=== PATIENT | male | born 1955 | race Caucasian/White ===

== ENCOUNTER 2018-12-23 09:53 | Inpatient (IN) ==
[2018-12-23] MEDS ORDERED: DUONEB (A & A) INH ONE (10:18)
[2018-12-23] MEDS ORDERED: ZOFRAN IV ONE (10:18)
[2018-12-23] MEDS ORDERED: NS 1,000 ML IV ONE ×4 (10:18→14:38)
[2018-12-23] MEDS ORDERED: MORPHINE IV ONE (10:18)
[2018-12-23] MEDS ORDERED: ZOSYN 4.5 GM in NS 100 ML IV ONE (10:18)
--- NOTE | 2018-12-23 11:05 | EKG Report ---
Test Performed on : 12/23/2018 10:10:47 AM Test Reason : tachycardia Blood Pressure : / mmHG Vent. Rate : 117 BPM Atrial Rate : 117 BPM P-R Int : 128 ms QRS Dur : 074 ms QT Int : 310 ms P-R-T Axes : 056 -18 026 degrees QTc Int : 432 ms Sinus tachycardia. Otherwise normal ECG No previous ECGs available Unconfirmed Result
[2018-12-23 11:09] LABS: BASO# 0.02 X1000 (0.0-0.2); BASO% 0.1 % (0.0-0.8); HEMATOCRIT 46.9 % (42.0-52.0); HEMOGLOBIN 15.6 g/dL (14.0-18.0); IMM GRAN# 0.09 X1000 (0.0-0.04); IMM GRAN% 0.6 % (0.0-0.5); LYMPH# 1.22 X1000 (1.2-3.4); LYMPH% 8.4 % (20.5-51.1); MCHC 33.3 g/dL (33-37); MCV 84.1 FL (81-99); MONO# 0.86 X1000 (0.11-0.59); MONO% 5.9 % (1.7-9.3); MPV 10.4 FL (7.4-10.4); NEUT# 12.42 X1000 (1.4-6.5); PLT 351 X1000 (130-400); RBC 5.58 XMIL (4.7-6.1); RDW 13.6 % (11.5-14.5); WBC 14.61 X1000 (4.8-10.8)
[2018-12-23 11:15] LABS: INR 1.04; PROTIME 13.8 Seconds (11.0-16.0)
[2018-12-23 11:16] LABS: PTT 26.2 Seconds (22.3-41.8)
[2018-12-23 11:31] LABS: AGAP 26; ALB/GLOB RATIO 1.7; ALBUMIN 4.5 g/dL (3.5-5.0); ALKALINE PHOSPHATASE 96 U/L (32-122); BUN 24 mg/dL (8-22); CALCIUM 9.6 mg/dL (8.8-10.2); CHLORIDE 95 mmol/L (98-107); CK PROFILE 127 U/L (24-204); COSMO 289; CREATININE 1.1 mg/dL (0.7-1.2); ESTIMATED GFR > 60; GLUCOSE 135 mg/dL (70-104); GOT 20 U/L (10-34); GPT 13 U/L (10-44); POTASSIUM 3.7 mmol/L (3.5-5.1); SODIUM 142 mmol/L (136-145); TCO2 21 mmol/L (25-35); TOTAL BILIRUBIN 1.19 mg/dL (0.20-1.00); TOTAL PROTEIN 7.2 g/dL (6.3-8.3)
--- NOTE | 2018-12-23 11:32 | Diag Imaging Result Doc PS360 ---
CHEST-1 VIEW - 12/23/2018 INDICATION: sob COMPARISON: None FINDINGS: The lungs are normally expanded and clear. Heart size and mediastinal contours are normal. No pneumothorax or pleural effusion. IMPRESSION: Negative exam. Electronically signed by Ottoniel Robledo 12/23/2018 11:30 AM
[2018-12-23 13:13] LABS: URINE SOURCE CLEAN CATCH
--- NOTE | 2018-12-23 13:14 | Diag Imaging Result Doc PS360 ---
CT ABD/PELVIS/PULM ARTERIES - 12/23/2018 INDICATION: post-colonoscopy vomiting/sepsis,dyspnea TECHNIQUE: Axial CT images were obtained after administering intravenous contrast. Coronal MIP images were generated. COMPARISON: 10/24/2014 FINDINGS: CHEST: There is no pulmonary embolism. Heart and great vessels are normal. There is severe diffuse wall thickening of the esophagus. There is a stable hiatal hernia. No adenopathy. There is severe infiltrate in the left lower lobe indicating pneumonia. Airways are clear. Bones are intact. Abdomen pelvis: The liver, gallbladder, spleen, pancreas, adrenals, and kidneys are normal. No bowel obstruction or inflammation. There is hernia repair mesh at the left inguinal canal and at the diaphragmatic hiatus. Urinary bladder, prostate, and rectum are normal. Bones are intact. IMPRESSION: 1. Dense left lower lobe pneumonia. 2. Severe wall thickening of the esophagus presumably diffuse esophagitis. Correlate clinically. This exam was performed using automated exposure control, adjustment of mA or kV according to patient size, and/or use of iterative reconstruction technique Electronically signed by Ottoniel Robledo 12/23/2018 1:12 PM
[2018-12-23 13:17] LABS: BILIRUBIN URINE NEGATIVE (NEGATIVE); BLOOD URINE NEGATIVE (NEGATIVE); COLOR YELLOW; GLUCOSE URINE NEGATIVE (NEGATIVE); KETONE URINE >150 mg/dL (NEGATIVE); LEUKOCYTES URINE NEGATIVE (NEGATIVE); NITRITE URINE NEGATIVE (NEGATIVE); PROTEIN URINE TRACE mg/dL (NEGATIVE); SP GRAVITY URINE 1.044; TURBIDITY URINE CLEAR (CLEAR); UROBILINOGEN URINE NORMAL (NORMAL)
[2018-12-23 13:18] LABS: UR EPITHELIAL CELLS <10 /HPF (<10); URINE BACTERIA NEGATIVE /HPF; URINE RBC <10 /HPF (<10); URINE WBC <10 /HPF (<10)
[2018-12-23] MEDS ORDERED: VANCOMYCIN 1 GM/NS 1 GM/250 ML IVPB IV ONE ×2 (13:24→15:00)
--- NOTE | 2018-12-23 13:31 | PROVIDER DOCUMENTATION ---
This chart was entered by Laura Ascencio Scribe, acting as scribe for Santiago Duffy MD. HPI-General Adult - General Chief Complaint: Post Op Complaint Stated Complaint: POST PROCEDURE PROBLEM Time Seen by Provider: 12/23/18 10:08 Source: patient, family (son) Allergies/Adverse Reactions: Patient Allergies Allergy/AdvReac Type Severity Reaction Status Date / Time No Known Allergies Allergy Verified 12/23/18 10:45 Home Medications: Home Medication List Medication Instructions Recorded Confirmed Last Taken Type Hydrocodone/APAP 7.5 mg/325 mg 1 each PO Q6H PRN PRN #15 tablet 11/06/14 12/23/18 Unknown Rx [[place]-7.5] - History of Present Illness -Gen Adult Nature of Presenting Problems: Patient is a 63 year old male who presents with post op complaints. Patient's son states patient had a colonoscopy done 4 days ago and during the procedure he aspirated. Son reports patient has been having shortness of breath and cough. Son states nausea, vomiting and weight loss of 10 lbs as well. Patient denies fever, diarrhea and abdominal pain. Son also states patient was in A fib with RVR after colonoscopy and received 2 doses of a medication. Location of Pain/Injury: reports: none Quality of Pain: reports: none Severity: reports: mild Onset/Duration: reports: 4 days ago Timing: reports: still present Context/Activities at Onset: reports: light activity Associated Symptoms: reports: cough, nausea, shortness of breath, vomiting, other (weight loss) Similar Symptoms Previously?: Yes Recently seen or treated by another doctor?: Yes Review of Systems - Adult - REVIEW OF SYSTEMS - ADULT ROS:: ROS per family Constitutional: reports: see HPI, weight loss. denies: chills, fever Eyes: reports: no symptoms reported Ears, Nose, Mouth & Throat: reports: no symptoms reported Cardiovascular: reports: no symptoms reported Respiratory: reports: see HPI, cough, shortness of breath. denies: wheezing Gastrointestinal: reports: nausea, vomiting. denies: abdominal pain Genitourinary: reports: no symptoms reported Musculoskeletal: reports: no symptoms reported Integumentary: reports: no symptoms reported Neurological: reports: no symptoms reported Psychiatric: reports: no symptoms reported Endocrine: reports: no symptoms reported Hematologic/Lymphatic: reports: no symptoms reported Allergic/Immunologic: reports: no symptoms reported All Other Systems: Reviewed and Negative Past History - Adult - PAST MEDICAL HISTORY-ADULT Review of Records: reports: Old Records Reviewed, Nursing Assessment Review, Medications Reviewed, Social history reviewed & non-contributory. Major Childhood Illnesses: reports: denies history Cardiovascular: reports: A-Fib Respiratory: reports: denies history Gastrointestinal: reports: denies history Obstetrical/Gynecological: reports: denies history Genitourinary: reports: denies history. denies: kidney stones, prostatitis Musculoskeletal: reports: denies history Neurological: reports: denies history Psychiatric: reports: denies history Endocrine/Immune: reports: denies history Other Conditions: reports: denies history - PRIOR SURGERIES/PROCEDURES Surgical/Procedure History: reports: hernia repair - PRIOR HOSPITALIZATIONS Prior Hospitalizations: reports: none - IMMUNIZATION STATUS Childhood Immunizations: See Nurse Assessment Flu Vaccine: See Nurse Assessment - FAMILY HISTORY Family History: reviewed, not pertinent - SOCIAL HISTORY Smoking: denies Substance Use: denies Physical Exam-General - PHYSICAL EXAM-ADULT Initial Vital Signs Reviewed: Yes - CONSTITUTIONAL General Appearance: alert, no apparent distress, other (generally ill appearing) . negative: lethargic - RESPIRATORY Respiratory: chest non-tender, lungs clear, increased rate. negative: respiratory distress, crackles, rhonchi - CARDIOVASCULAR Cardiovascular: normal peripheral pulses, tachycardia. negative: systolic murmur - GASTROINTESTINAL (ABDOMEN) Abdominal Exam: normal bowel sounds, non tender, soft, other (well healed mid line scar.). negative: guarding, rebound - SKIN Integumentary: normal color, normal turgor, warm/dry. negative: diaphoresis, erythema - NEUROLOGIC Neurologic: grossly normal. negative: aphasia, facial droop - PSYCHIATRIC Psych/Mental Status: normal mood/affect. negative: paranoid, tearful Progress - PLAN OF CARE/RESULTS Progress/Plan/Lab Results: Vital Signs - 8 hr 12/23/18 09:59 Temperature 97.5 F L Pulse Rate 121 H Respiratory Rate 25 H Blood Pressure 132/93 O2 Sat by Pulse Oximetry 96 Orders Category Date Time Status Cardiac Monitoring DIRECTED Care 12/23/18 10:04 Active IV Insertion ORDERED Care 12/23/18 10:04 Active Notify MD of + Sepsis Screen NOW Care 12/23/18 10:04 Active Notify Physician As Ordered Care 12/23/18 10:04 Active CHEST-1 VIEW [RAD] Stat Exams 12/23/18 10:04 Ordered BLOOD CULTURE [BLDCUL] Stat Lab 12/23/18 10:04 Uncollected CBC WITH DIFF [HEME] Stat Lab 12/23/18 10:04 Uncollected CK PROFILE [SP CHEM] Stat Lab 12/23/18 10:04 Uncollected COMPREHENSIVE METABOLIC PANEL [CHEM] Stat Lab 12/23/18 10:04 Uncollected LACTATE, PLASMA [CHEM] Q3H Lab 12/23/18 10:15 Uncollected LACTATE, PLASMA [CHEM] Q3H Lab 12/23/18 13:15 Uncollected LACTATE, PLASMA [CHEM] Q3H Lab 12/23/18 16:15 Uncollected PROTIME WITH INR [COAG] Stat Lab 12/23/18 10:04 Uncollected PTT [COAG] Stat Lab 12/23/18 10:04 Uncollected TROPONIN T Stat Lab 12/23/18 10:04 Uncollected URINALYSIS W/POSS RFLX CULT [URINALYSIS] Stat Lab 12/23/18 10:04 Uncollected Oxygen Device Stat Oth 12/23/18 10:04 Active Result Diagrams: 12/23/18 10:43 12/23/18 10:43 - REASSESSMENT Reassessment #1 Time Reassessed: 13:28 Status: improving (Given neb treatments, IV vanco/zosyn, much improved. Meets criteria for sepsis, and lactate is elevated. Not hypotensive and lactate is less than 4, so does not need the full 30ml/kg bolus) - EKG 1 Time of EKG reading by physician:: 10:10 EKG Read and Signed by:: Santiago Duffy EKG Interpretation (*Must complete 3 of following elements*): Abnormal Rate: 117 Rhythm: sinus tachycardia [place]: normal [place] Interval: normal Comments: early transition, artifact present. 2 Time of EKG reading by physician:: 11:22 EKG Read and Signed by:: Santiago Duffy EKG Interpretation (*Must complete 3 of following elements*): Abnormal Rate: 100 Rhythm: sinus tachycardia [place]: normal [place] Interval: normal Comments: early transition, artifact present, NSSTTWC - XRAY 1 XRAY Study: Chest Impression: See EMR Report ( CHEST-1 VIEW - 12/23/2018 INDICATION: sob COMPARISON: None FINDINGS: The lungs are normally expanded and clear. Heart size and mediastinal contours are normal. No pneumothorax or pleural effusion. IMPRESSION: Negative exam. Electronically signed by Ottoniel Robledo 12/23/2018 11:30 AM 12/23/18 1130 Interpreting Physician: Ottoniel Robledo MD Dictated Date/Time: 12/23/18 1130 cc: Santiago Duffy MD; Saul Castillo) - CT/MRI 1 CT Study: Abdomen, Pelvis Impression: See EMR Report ( CT ABD/PELVIS/PULM ARTERIES - 12/23/2018 INDICATION: post-colonoscopy vomiting/sepsis,dyspnea TECHNIQUE: Axial CT ashok ges were obtained after administering intravenous contrast. Coronal MIP images were generated. COMPARISON: 10/24/2014 FINDINGS: CHEST: There is no pulmonary embolism. Heart and great vessels are normal. There is severe diffuse wall thickening of the esophagus. There is a stable hiatal hernia. No adenopathy. There is severe infiltrate in the left lower lobe indicating pneumonia. Airways are clear. Bones are intact. Abdomen pelvis: The liver, gallbladder, spleen, pancreas, adrenals, and kidneys are normal. No bowel obstruction or inflammation. There is hernia repair mesh at the left inguinal canal and at the diaphragmatic hiatus. Urinary bladder, prostate, and rectum are normal. Bones are intact. IMPRESSION: 1. Dense left lower lobe pneumonia. 2. Severe wall thickening of the esophagus presumably diffuse esophagitis. Correlate clinically. This exam was performed using automated exposure control, adjustment of mA or kV according to patient size, and/or use of iterative reconstruction technique Electronically signed by Ottoniel Robledo 12/23/2018 1:12 PM 12/23/18 1312 Interpreting Physician: Ottoniel Robledo MD Dictated Date/Time: 12/23/18 1250 cc: Santiago Duffy MD; Saul Castillo) - CONSULTS/PCP/HOSPITALIST Notification #1 *Consult/PCP/Hospitalist*: GERTRUDIS Stock for Hospitalist Time Discussed: 13:26 Reason/Comments: Dr. Duffy consulted with [facility] about patient. Consult Disposition: Will see in ED, Admit Departure - Departure Date of Disposition Decision: 12/23/18 Time of Disposition Decision: 13:27 DIAGNOSIS: Aspiration pneumonia of left lower lobe due to gastric secretions, Sepsis with organ dysfunction Disposition: ADMITTED INPATIENT 09 Certified Medical Emergency: Emergent Condition: Fair Referrals and Follow-Ups: Saul Castillo [Primary Care Provider] - - Critical Care Note This patient required my direct & personal management of CC.: Yes Total Time (mins): 40 (CVS/BLOWING ENGINEER/renal systems needed interventions) Critical Care Statement: This patient required my direct personal management to treat or rule out processes, the absence of which, could potentiallly result in sudden, clinically significant life or limb threatening deterioration. Attestation - Physician/ STACIA Attestation Patient care was provided by Advanced Practice Provider:: No The physician spent face to face time with patient:: Yes Advanced Practice Provider documentation review:: Supervising physician onsite and consulted in the evaluation and care of this patient. The physician did have a face to face encounter with the patient. This chart was documented by the indicated scribe, (Laura Ascencio Scribe) and accurately reflects the services I performed and decisions made by me, Santiago Duffy MD, as attested by the provider's signature.
[2018-12-23] MEDS ORDERED: VANCOMYCIN IV PER PHARMACY MISC SCH (14:15)
[2018-12-23] MEDS ORDERED: NORCO-7.5 PO PRN (14:38)
[2018-12-23] MEDS ORDERED: TYLENOL PO PRN (14:38)
[2018-12-23] MEDS ORDERED: BLISTEX MEDICATED BERRY LIP BALM TOP PRN (16:43)
[2018-12-23] MEDS ORDERED: CHLORASEPTIC SPRAY MT PRN (16:54)
[2018-12-23] MEDS: PEPCID IV SCH (17:05)
[2018-12-23] MEDS: ZOSYN 3.375 GM in NS 50 ML IV SCH ×2 (17:05→21:49)
[2018-12-23] MEDS: MUCINEX PO SCH (21:48)
[2018-12-24] MEDS: PEPCID IV SCH ×2 (03:04→16:31)
[2018-12-24] MEDS: ZOFRAN IV PRN (03:04)
[2018-12-24] MEDS: ZOSYN 3.375 GM in NS 50 ML IV SCH ×3 (03:04→17:52)
[2018-12-24] MEDS: SODIUM CHLORIDE 0.9% INJ SCH (03:04)
--- NOTE | 2018-12-24 04:04 | HISTORY AND PHYSICAL ---
PRIMARY CARE PHYSICIAN: [place] HISTORY OF PRESENT ILLNESS: He apparently had a colonoscopy Monday (this is Monday), and he threw up a couple times, one right after the procedure, and another later on in recovery. He felt like he may have had a stomach virus that came on around Monday because he has had nausea. He has not drank or eaten much in the way of food or liquid, and he has kind of just had general malaise and felt bad. He has had a cough and bronchial irritation, and so was brought to the emergency room, where it appears he has a lobar pneumonia, I believe of his left lower lobe. He denies any squeezing or pressure chest pain. No hemoptysis. He felt well until Monday. His son is a nurse practitioner, and he helped with the history. Past medical history is pretty unremarkable. He has had what sounds like a Leigh Ann fundoplication for a hiatal hernia. Otherwise, I do not think he has had any significant medical problems. No diabetes. No heart issues. ALLERGIES: No known drug allergies. PAST MEDICAL HISTORY: 1. He has had a history of kidney stones. 2. Benign prostatic hypertrophy with obstruction. 3. Urinary retention in the past, and some microhematuria. PAST SURGICAL HISTORY: Hiatal hernia. I think he has had 3 separate surgeries for revision of the Leigh Ann fundoplication. He had a broken thumb and circumcision. SOCIAL HISTORY: He does not smoke. He smoked a pack a day for 3 years, 3-pack-year history, so he must of quit, and drinks rare alcohol, less than social is what he said. FAMILY HISTORY: Father with a history of CVA and heart disease. His father has passed. History of heart disease, and brother with history of diabetes. REVIEW OF SYSTEMS: Constitutional: He does not report any weight gain or loss. He has felt like he has had subjective fever. HEENT: No change in vision or hearing acuity. Neck: No neck pain or adenopathy. Respiratory: No increased work of breathing until after Monday. He has noticed a little increased dyspnea on exertion and a frequent cough provoked with talking and deep inspiration. Cardiovascular: No chest pain or tachy palpitation. Gastrointestinal/Genitourinary: Unremarkable. Endocrinologic/Hematologic: No significant history. Neurologic: No focal changes or complaints. PHYSICAL EXAMINATION: VITAL SIGNS: Temperature 98.5 degrees, pulse 107, respirations 24, blood pressure 162/107. Weight 170 pounds. Height 5 feet 10 inches. HEENT: His pupils are equal and round. No sign of oral or nasal mucosal lesions. Conjunctiva was pink. Sclerae was clear. NECK: CVP less than 6 cm. No distended neck veins. Supple. No adenopathy. LUNGS: Clear in anterior lung garcia. There is some rhonchi in both bases, but a little more prominent in the left lower base posterior. CARDIOVASCULAR: Regular rhythm and rate. He does have some sinus tachycardia. No ectopy appreciated on the monitor. ABDOMEN: Soft, nondistended, nontender. Positive bowel sounds in all quadrants. Carotid, radial, and femoral pulses are 2+ and symmetrical. No carotid or femoral bruits. EXTREMITIES: Without edema. He did not complain or did not see sign of rash on his skin. IMAGING AND LABORATORY DATA: White count is 14,610, hematocrit 46, platelet count 351,000. Sodium 142, potassium 3.7, chloride 95, BUN 24, creatinine 1.1. Blood sugar 135. AST 20, ALT was 13, alkaline phosphatase was 96. Troponin was less than 0.01. Albumin 4.5. ProTime is 13.8, INR was 1.04, PTT was 26. Urinalysis unremarkable. Abdominal and pelvic CT: We could appreciate a dense left lower lobe pneumonia, severe wall thickening of the esophagus, presumably diffuse esophagitis. Chest x-ray: Negative exam. Did not see infiltrates. Lungs normally expanded. Clear. There is little haziness in the left base though. ASSESSMENT AND PLAN: 1. Left lower lobe pneumonia, suspect from aspiration. We will cover for gram-negative, and will use vancomycin and Zosyn to cover for gram-positive cocci as well. We will give bronchodilators, supplementary oxygen. I think he would benefit from a steroid inhaler as well. Will put him on guaifenesin, which will be 1200 mg twice a day, incentive spirometry, and oxygen at 2 liters per nasal cannula. Will follow up with another chest x-ray in the morning, and we will check T4, TSH, B12, and folate. Will send a sputum for culture. 2. History of Leigh Ann fundoplication, hiatal hernia. He has not had any real symptoms of pain or reflux. We will keep him on a proton pump inhibitor while he is here, just oral, and we can use Nexium 40 mg once a day. cc: Douglas Burch MD
[2018-12-24 07:02] LABS: BASO# 0.01 X1000 (0.0-0.2); BASO% 0.1 % (0.0-0.8); EOS# 0.02 X1000 (0.0-0.7); EOS% 0.2 % (0.0-10.0); HEMATOCRIT 36.2 % (42.0-52.0); HEMOGLOBIN 11.9 g/dL (14.0-18.0); IMM GRAN# 0.11 X1000 (0.0-0.04); IMM GRAN% 0.9 % (0.0-0.5); LYMPH# 1.27 X1000 (1.2-3.4); LYMPH% 10.9 % (20.5-51.1); MCH 28.4 PG (27-31); MCHC 32.9 g/dL (33-37); MCV 86.4 FL (81-99); MONO# 0.75 X1000 (0.11-0.59); MONO% 6.4 % (1.7-9.3); MPV 10.1 FL (7.4-10.4); NEUT% 81.5 % (42.2-75.2); PLT 238 X1000 (130-400); RBC 4.19 XMIL (4.7-6.1); RDW 13.5 % (11.5-14.5); WBC 11.66 X1000 (4.8-10.8)
--- NOTE | 2018-12-24 07:20 | Diag Imaging Result Doc PS360 ---
EXAM: CHEST-PORTABLE 12/24/2018 HISTORY: Pneumonia TECHNIQUE: AP portable upright at 0610 COMMENT: There is ill-defined opacity in the left lower lobe. Compared to 12/23/2018 there has been no significant change in the appearance of the chest. IMPRESSION: Minimal left lower lobe bronchopneumonia. Electronically signed by Ammon Sierra 12/24/2018 7:18 AM
[2018-12-24 07:35] LABS: FREE T4 1.56 ng/dL (0.93-1.70); TSH 1.4 uIUmL (0.27-4.20)
[2018-12-24 07:37] LABS: AGAP 14; ALB/GLOB RATIO 1.3; ALBUMIN 3.2 g/dL (3.5-5.0); ALKALINE PHOSPHATASE 69 U/L (32-122); BUN 15 mg/dL (8-22); CALCIUM 7.6 mg/dL (8.8-10.2); CHLORIDE 101 mmol/L (98-107); COSMO 278; CREATININE 0.9 mg/dL (0.7-1.2); ESTIMATED GFR > 60; GLUCOSE 117 mg/dL (70-104); GOT 17 U/L (10-34); GPT 10 U/L (10-44); POTASSIUM 3.3 mmol/L (3.5-5.1); SODIUM 138 mmol/L (136-145); TCO2 23 mmol/L (25-35); TOTAL BILIRUBIN 1.11 mg/dL (0.20-1.00); TOTAL PROTEIN 5.7 g/dL (6.3-8.3)
--- NOTE | 2018-12-24 07:38 | EKG Report ---
Test Performed on : 12/24/2018 07:15:03 AM Test Reason : ST Blood Pressure : / mmHG Vent. Rate : 066 BPM Atrial Rate : 066 BPM P-R Int : 138 ms QRS Dur : 078 ms QT Int : 400 ms P-R-T Axes : 010 -08 030 degrees QTc Int : 419 ms Normal sinus rhythm. Nonspecific ST abnormality Abnormal ECG When compared with ECG of 23-DEC-2018 11:22, (Unconfirmed) Vent. rate has decreased BY [address] no longer depressed in Inferior leads Nonspecific T wave abnormality has replaced inverted T waves in Inferior leads Unconfirmed Result
--- NOTE | 2018-12-24 08:07 | EKG Report ---
Test Performed on : 12/23/2018 11:22:08 AM Test Reason : ED. NO EKG ORDER FOR MUSE Blood Pressure : / mmHG Vent. Rate : 100 BPM Atrial Rate : 100 BPM P-R Int : 116 ms QRS Dur : 080 ms QT Int : 354 ms P-R-T Axes : 070 -16 000 degrees QTc Int : 456 ms Normal sinus rhythm. Inferior infarct , age undetermined Abnormal ECG When compared with ECG of 23-DEC-2018 10:10, (Unconfirmed) ST now depressed in Inferior leads Unconfirmed Result
[2018-12-24] MEDS: VANCOMYCIN 1,500 MG in NS 250 ML IV SCH (09:43)
--- NOTE | 2018-12-24 09:49 | PROGRESS NOTE ---
DATE: 12/24/2018 SUBJECTIVE: He was up. He was ambulating. Says he feels better, a little stronger, remains afebrile. OBJECTIVE: Vital Signs: On exam, temperature 98.0 degrees, pulse 78, respirations 18, blood pressure 152/70. Eyes: Pupils are equal. Lungs: Clear in all lung garcia anterolateral. Cardiovascular exam: Regular rhythm and rate without murmur or S3. Abdomen: Soft. Skin: Skin is warm and dry. : Urine output is 1500 mL. X-RAYS: Chest x-ray: Minimal left lower lobe bronchopneumonia appreciated. ASSESSMENT AND PLAN: Bronchopneumonia. I suspect some aspiration. Had a recent colonoscopy with some vomiting. He is feeling better. He appeared a little bit volume depleted or dehydrated when he came in. That has improved as well. We will continue right now his vancomycin and Zosyn. Cultures pending. Group A strep was negative from negative antigen. Influenza screen was negative for A and B. cc: Douglas Burch MD
[2018-12-24] MEDS: MUCINEX PO SCH ×2 (10:36→22:49)
[2018-12-25] MEDS: ZOFRAN IV PRN ×2 (01:35→05:33)
[2018-12-25] MEDS: ZOSYN 3.375 GM in NS 50 ML IV SCH ×4 (01:40→20:49)
[2018-12-25] MEDS: PEPCID IV SCH ×2 (02:51→14:08)
[2018-12-25] MEDS: SODIUM CHLORIDE 0.9% INJ SCH ×2 (02:51→14:08)
[2018-12-25] MEDS: VANCOMYCIN 1,500 MG in NS 250 ML IV SCH ×2 (03:13→21:55)
[2018-12-25] MEDS: MUCINEX PO SCH ×3 (08:01→21:23)
--- NOTE | 2018-12-25 09:40 | PROGRESS NOTE ---
DATE: 12/25/2018 SUBJECTIVE: Mr. Govea feels much better. His voice is still raspy. Still coughing. OBJECTIVE: Vital Signs: Remains afebrile, temperature 98.8 degrees, pulse 70, respirations 18, blood pressure 162/60. HEENT: Pupils are equal and round. Lungs: Clear in all lung garcia. Cardiovascular: Regular rhythm and rate without murmur or S3. Abdomen: Soft. Skin: Warm and dry. Urine output 2700 mL. ASSESSMENT AND PLAN: Bronchial pneumonia. Clinically better. Hopefully can go home tomorrow. Continue present antibiotics. Cultures. Influenza screen, I believe, was negative. Group A strep was negative, rapid antigen. No growth from blood cultures. Hopefully home tomorrow. cc: Douglas Burch MD
[2018-12-25] MEDS: PROTONIX PO SCH (21:23)
[2018-12-25] MEDS: CARAFATE LIQUID PO SCH (21:23)
[2018-12-26] MEDS: ZOSYN 3.375 GM in NS 50 ML IV SCH ×4 (02:06→19:25)
[2018-12-26] MEDS: ZOFRAN IV PRN (04:21)
--- NOTE | 2018-12-26 06:19 | GASTROENTEROLOGY CONSULTATION ---
DATE: 12/25/2018 REASON FOR CONSULTATION: Abdominal pain and difficulty swallowing. HISTORY OF PRESENT ILLNESS: This is a 63-year-old male who reports onset of symptoms last week. He had a colonoscopy last Monday by Dr. Rae in [place]. He reports during the procedure he had an episode of vomiting, and then after the procedure he also had subsequent episodes. He felt like he might have had a stomach virus. He had multiple episodes of nausea and vomiting, and was not able to eat. He states he felt bad, and was fatigued. No reported fever or diarrhea. He came into the hospital after having a cough, and continued symptoms and was found to have pneumonia. He has also reported some upper abdominal pain. He reports having a Leigh Ann fundoplication about 10 years ago and required multiple surgeries. He is worried that the pain may be associated with possible issues from his previous Leigh Ann fundoplication. PAST MEDICAL HISTORY: History of kidney stones. History of benign prostatic hypertrophy, and history of urinary retention. PAST SURGICAL HISTORY: Leigh Ann fundoplication for hiatal hernia. Patient reports having 3 different surgeries. Also, he had fractured thumb and history of circumcision. ALLERGIES: Phenergan causing unknown reaction. HOME MEDICATIONS: Hydrocodone 7.5/325 every 6 hours as needed. SOCIAL HISTORY: Patient denies tobacco use. He reports occasional social alcohol use. 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 He is single. He has one child that is a nurse practitioner. FAMILY HISTORY: Father with history of cerebrovascular accident and heart disease. Brother has history of diabetes. REVIEW OF SYSTEMS: HEENT: He has reported a sore throat and cough. He has had some difficulty swallowing, and has not been able to eat solid foods. Respiratory: He has had cough. Cardiovascular: No reported chest pain. Gastrointestinal: He has reported upper abdominal pain. He had recent episodes of nausea and vomiting after his colonoscopy procedure last week. PHYSICAL EXAMINATION: Vital Signs: Temperature 98.6 degrees, pulse 74, respirations 18, and blood pressure 153/81. General: Patient is awake and alert in no acute distress. He does have the hoarseness. He has positive cough. HEENT: Normocephalic, atraumatic. Pupils equal, round, and reactive to light. Respiratory: Lung sounds essentially clear, but positive cough and congestion. Cardiovascular: Regular rate and rhythm. Abdomen: Soft. There is some tenderness in the upper abdomen. Extremities: No lower extremity edema noted. Neurological: Cranial nerves 2-12 grossly intact. Patient is awake, alert, and oriented to person, place, and time. Extremities: No lower extremity edema noted. LABORATORY: Hematology: WBC 11.66, hemoglobin 11.9, hematocrit 36.2, MCV 86.4, and platelets 238,000. Coagulation ProTime 13.8, INR 1.04 PTT 26.2. Chemistry: Sodium 138, potassium 3.3, chloride 101, CO2 of 23, BUN 15, creatinine 0.9, glucose 117, calcium 7.6, magnesium 2.0, total bilirubin 1.11, AST 17, ALT 10, alkaline phosphatase 69, albumin 3.2. IMAGING: Abdominal pelvis CT scan showed dense left lower lobe pneumonia. Severe wall thickening of the esophagus most likely esophagitis. ASSESSMENT AND PLAN: 1. Recent colonoscopy procedure with possible aspiration pneumonia after vomiting. Patient has had nausea and vomiting. Continue aspiration precautions. Continue current medications. He is on antibiotics. He is currently receiving Pepcid. We will change that to Prilosec 40 mg twice a day. A CT scan showed possible esophagitis. 2. Pneumonia. Continued antibiotics. 3. Recent colonoscopy done by Dr. Rae in [facility]. 4. History of Leigh Ann fundoplication for hiatal hernia. PLAN: Continue current management and medications, but would change his anti- reflux medicine to a PPI twice daily. That will be ordered. Due to his current pneumonia, would hold off proceeding with EGD for now but if the symptoms do not improve, would proceed with EGD for further evaluation. Depending on patient's progress and when he is discharged, patient can be discharged to follow up with his assistant professor of music Dr. Rae, or we will be glad to see the patient as needed. We will continue to follow during his hospital course, and further plans to be made according to his progress. I have discussed his case with Dr. Andujar. Dictated by GERTRUDIS Clement for Steve Andujar MD cc: GERTRUDIS Sandhu MD [facility]
[2018-12-26] MEDS: MUCINEX PO SCH ×3 (08:56→20:16)
[2018-12-26] MEDS: PROTONIX PO SCH ×3 (08:56→21:09)
[2018-12-26] MEDS: CARAFATE LIQUID PO SCH ×3 (08:57→19:23)
--- NOTE | 2018-12-26 09:56 | PROGRESS NOTE ---
DATE: 12/26/2018 SUBJECTIVE: Mr. Govea is breathing better, but he is having trouble swallowing, and he still has the hiccups, so Con has evaluated. He will probably delay looking down there with endoscopy until the pneumonia has cleared. We are going to keep him on liquids. He does feel a little better than yesterday. OBJECTIVE: Vital signs: Temperature 98.3, pulse 69, respirations 16, blood pressure 143/60. Lungs: Clear in all lung garcia. Cardiovascular exam: Regular rhythm and rate without murmur or S3. Abdomen: Soft. Skin: Warm and dry. Urine output is 2200 mL. ASSESSMENT AND PLAN: 1. Recent colonoscopy procedure. Possible aspiration pneumonia better clinically. Continue present antibiotics. He is receiving Pepcid and we changed him to Prilosec 40 mg twice a day. 2. Leigh Ann fundoplication for hiatal hernia. We are changing his antireflux medication to proton pump inhibitor twice a day. Hold off on proceeding with an esophagogastroduodenoscopy until further clinically improved. Keep him on liquids at this point. He will follow up with his clinical rehab specialist, Dr. Rae, but Dr. Andujar can follow him up as well. The patient seems to think his clinical rehab specialist in [place] has retired. cc: Douglas Burch MD
[2018-12-26] MEDS ORDERED: MILK OF MAGNESIA PO ONE (14:13)
[2018-12-26] MEDS: VANCOMYCIN 1,500 MG in NS 250 ML IV SCH (15:15)
[2018-12-26] MEDS ORDERED: DULCOLAX PR ONE (19:25)
--- NOTE | 2018-12-26 22:37 | GASTROENTEROLOGY PROGRESS NOTE ---
DATE: 12/26/2018 SUBJECTIVE: Patient is awake and alert. He still does have some hoarseness and has hiccups. He has had some trouble swallowing and trouble eating. He was able to get his medications this morning. We changed him from H2 receptor antagonist to PPI twice daily, along with Carafate liquid. Patient feels like his hoarseness is slightly improved. He is still reporting some hiccups and what he feels like are spasms when he tries to drink or eat. OBJECTIVE: Vital Signs: Temperature 97.9 degrees, pulse 95, respirations 16, blood pressure 145/74. General: The patient is awake and alert, in no acute distress. LABORATORY: Hematology: WBC 11.66, hemoglobin 11.9, hematocrit 36.2, platelets 238,000. Chemistry: Sodium 138, potassium 3.3, chloride 101, CO2 of 23, BUN 15, creatinine 0.9, glucose 117, total bilirubin 1.11, AST 17, ALT 10, alkaline phosphatase 69. ASSESSMENT: 1. Recent colonoscopy procedure with possible aspiration pneumonia. Patient is on antibiotics. 2. History of Leigh Ann fundoplication for hiatal hernia. PLAN: Patient had colonoscopy by Dr. Peres in [place]. Would recommend holding off endoscopy procedure at present time unless urgently needed due to patient's pneumonia. He can follow up with Dr. Peres as an outpatient on possible EGD procedure. We will continue to follow during his hospital course and further plans will be made as needed. Patient thinks that the doctor that did his Leigh Ann fundoplication has retired and he will most likely need EGD for further evaluation if his symptoms do not improve. I have discussed this case with Dr. Andujar. Dr. Andujar has talked with Dr. Burch. Further plans will be made as needed. Dictated by GERTRUDIS Clement for Steve Andujar MD cc: GERTRUDIS Sandhu MD
[2018-12-27] MEDS: CARAFATE LIQUID PO SCH ×2 (02:15→08:32)
[2018-12-27] MEDS: ZOSYN 3.375 GM in NS 50 ML IV SCH ×2 (02:16→11:00)
[2018-12-27] MEDS: VANCOMYCIN 1,500 MG in NS 250 ML IV SCH (02:50)
[2018-12-27 07:28] VITALS: BP 138/68
[2018-12-27] MEDS: PROTONIX PO SCH (08:31)
[2018-12-27] MEDS: MUCINEX PO SCH (08:33)
--- NOTE | 2018-12-27 09:27 | DISCHARGE SUMMARY ---
ADMISSION DATE: 12/23/2018 DISCHARGE DATE: 12/26/2018 HISTORY OF PRESENT ILLNESS: This is a 63-year-old who had a colonoscopy. I admitted him on Monday. He had a colonoscopy the Monday before. He threw up a couple times, one right after the procedure and later in recovery. [place] like he had a stomach virus on Monday because he had some nausea anyway. He had drank or ate much, and just felt bad since that time. It appears that he probably had a little aspiration pneumonia and pneumonitis. PAST MEDICAL HISTORY: Includes: 1. History of kidney stones. 2. Benign prostatic hypertrophy. 3. Urinary retention in the past. 4. Hiatal hernia for which he received what sounds like a Leigh Ann fundoplication. He has a total of three surgeries so I think some revision on the procedure. HOSPITAL COURSE: He seemed to clinically improve. We put him on Zosyn to cover gram-positive and some vancomycin. Radiographically and clinically, he improved. Chest x-ray on 12/24/2018, minimal left lower lobe pneumonia. [place] he could go home. He was having some trouble swallowing solid food in particular, so Dr. Andujar did evaluate. Dr. Andujar felt he had a recent colonoscopy and possible aspiration pneumonia following that. With his trouble with swallowing, due to his current illness, pneumonia, wanted to hold off on proceeding with an EGD. I think Mr. Govea would like to pursue his care director rn I believe in [place]. He will continue to stick to kind of clear liquids and supplemental nutrition. I think his care director rn is Dr. Rae. Dr. Andujar recommended he get an EGD followup and see how his hiatal hernia and Leigh Ann fundoplication is holding up. We will discharge him home. DISCHARGE ORDERS: I gave him some guaifenesin 1200 mg p.o. twice a day just to help with the secretions, Protonix 40 mg p.o. twice a day, Carafate 1 g p.o. q.6 hours. He can stop his antibiotics. His cultures were unrevealing. Blood culture is negative. No group A strep isolated on throat culture. Influenza screen was negative for A and B. cc: Douglas Burch MD
== END 2018-12-27 11:26 | disposition home or self-care (01) | DRG 179 ==
LOC: ED 09:53 → EDIPHOLD 14:25 → 4N 16:31
PROVIDERS: ATTEND Emergency Medicine